=== PATIENT | female | born 1945 | race African-American/Black ===

== ENCOUNTER 2021-05-31 20:43 | Emergency (ER) | payer MEDICARE, MEDICAID ==
[~2021-05-31] VITALS: Ht 170.2 cm; Wt 68.0 kg
[2021-05-31] MEDS ORDERED: PROT20 MT (23:17)
[2021-05-31] MEDS ORDERED: METO-293 MT (23:17)
[2021-05-31 23:20] VITALS: BP 160/80
== END 2021-05-31 23:30 | disposition home or self-care (01) ==
LOC: ER 20:43
DX: R10.13 Epigastric pain (principal); I10 Essential (primary) hypertension; E78.00 Pure hypercholesterolemia, unspecified; J45.909 Unspecified asthma, uncomplicated; Z79.899 Other long term (current) drug therapy; Z98.890 Other specified postprocedural states
CPT/HCPCS: 99283